=== PATIENT | female | born 1980 | race Caucasian/White ===

== ENCOUNTER → 2020-01-10 09:50 | Outpatient (CLI) | payer OTHER | END | disposition home or self-care (01) | LOC: LAB 09:50 | DX: E03.8 Other specified hypothyroidism (principal); E55.9 Vitamin D deficiency, unspecified; E78.49 Other hyperlipidemia; N39.0 Urinary tract infection, site not specified; Z00.00 Encounter for general adult medical examination without abnormal findings; E11.9 Type 2 diabetes mellitus without complications; J11.1 Influenza due to unidentified influenza virus with other respiratory manifestations ==

== ENCOUNTER 2020-01-16 08:55 | Outpatient (CLI) | payer OTHER | END 2020-01-16 14:49 | disposition home or self-care (01) | LOC: LAB 08:55 | DX: J11.1 Influenza due to unidentified influenza virus with other respiratory manifestations (principal); R05 Cough ==

== ENCOUNTER → 2020-05-15 08:55 | Outpatient (CLI) | payer OTHER | END | disposition home or self-care (01) | LOC: LAB 08:55 | PROVIDERS: ATTEND General Practice | DX: J11.1 Influenza due to unidentified influenza virus with other respiratory manifestations (principal); R51 Headache; Z11.59 Encounter for screening for other viral diseases; Z20.828 Contact with and (suspected) exposure to other viral communicable diseases ==

== ENCOUNTER 2020-07-17 08:00 | Outpatient (CLI) | payer OTHER | END 2020-07-17 15:00 | disposition home or self-care (01) | LOC: PPH VACUNA 08:00 | DX: Z23 Encounter for immunization (principal) ==

== ENCOUNTER 2020-09-11 09:32 | Outpatient (CLI) | payer OTHER | END 2020-09-11 09:36 | disposition home or self-care (01) | LOC: LAB 09:32 | DX: Z20.828 Contact with and (suspected) exposure to other viral communicable diseases (principal) ==

== ENCOUNTER 2020-11-21 09:05 | Outpatient (CLI) | payer OTHER | END 2020-11-21 16:03 | disposition home or self-care (01) | LOC: LAB 09:05 | DX: E03.8 Other specified hypothyroidism (principal); E11.65 Type 2 diabetes mellitus with hyperglycemia; I10 Essential (primary) hypertension; E55.9 Vitamin D deficiency, unspecified; E78.49 Other hyperlipidemia ==

== ENCOUNTER → 2020-11-21 | Outpatient (CLI) | payer OTHER | END | disposition home or self-care (01) | LOC: SONOGRAMA 09:09 → MAMO-SONO 09:15 | DX: E04.2 Nontoxic multinodular goiter (principal) ==

== ENCOUNTER 2021-01-23 08:04 | Outpatient (CLI) | payer OTHER | END 2021-01-23 08:23 | disposition home or self-care (01) | LOC: MAMO-SONO 08:04 | DX: Z12.31 Encounter for screening mammogram for malignant neoplasm of breast (principal); N60.11 Diffuse cystic mastopathy of right breast; N60.12 Diffuse cystic mastopathy of left breast ==

== ENCOUNTER 2021-01-29 08:32 | Outpatient (CLI) | payer OTHER | END 2021-01-29 15:32 | disposition home or self-care (01) | LOC: LAB 08:32 | PROVIDERS: ATTEND Student in an Organized Health Care Education/Training Program | DX: I10 Essential (primary) hypertension (principal); E78.49 Other hyperlipidemia; E03.8 Other specified hypothyroidism; N30.00 Acute cystitis without hematuria; E83.51 Hypocalcemia; Z12.11 Encounter for screening for malignant neoplasm of colon; E06.3 Autoimmune thyroiditis; N95.8 Other specified menopausal and perimenopausal disorders; R97.8 Other abnormal tumor markers; Z11.3 Encounter for screening for infections with a predominantly sexual mode of transmission; R74.8 Abnormal levels of other serum enzymes; E22.1 Hyperprolactinemia; E28.2 Polycystic ovarian syndrome ==

== ENCOUNTER → 2021-04-22 09:16 | Outpatient (CLI) | payer OTHER | END | disposition home or self-care (01) | LOC: LAB 09:16 | PROVIDERS: ATTEND Internal Medicine | DX: E78.5 Hyperlipidemia, unspecified (principal); I10 Essential (primary) hypertension; E03.8 Other specified hypothyroidism; R73.03 Prediabetes; E55.9 Vitamin D deficiency, unspecified; E11.65 Type 2 diabetes mellitus with hyperglycemia ==

== ENCOUNTER 2021-07-03 07:44 | Outpatient (CLI) | payer OTHER | END 2021-07-03 08:18 | disposition home or self-care (01) | LOC: LAB 07:44 | PROVIDERS: ATTEND Internal Medicine | DX: I10 Essential (primary) hypertension (principal); E03.8 Other specified hypothyroidism; E11.65 Type 2 diabetes mellitus with hyperglycemia; E78.49 Other hyperlipidemia ==

== ENCOUNTER 2021-10-16 12:56 | Outpatient (CLI) | payer OTHER | END 2021-10-16 16:54 | disposition home or self-care (01) | LOC: LAB 12:56 | PROVIDERS: ATTEND General Practice | DX: R05.8 Other specified cough (principal); J11.1 Influenza due to unidentified influenza virus with other respiratory manifestations; R80.8 Other proteinuria; R06.2 Wheezing; Z20.828 Contact with and (suspected) exposure to other viral communicable diseases ==